=== PATIENT | male | born 1955 | race Caucasian/White ===

== ENCOUNTER 2017-09-20 12:03 | Day surgery (SDC) | payer OTHER, MEDICARE, SELFPAY ==
[2017-09-16 11:12] VITALS: BP 171/83; PULSE 65; RESP 16; TEMP 36.4; O2SAT 98; BMI 28.3
--- NOTE | 2017-09-16 11:24 | SDCEKG_ITS ---
Test Reason : Blood Pressure : / mmHG Vent. Rate : 062 BPM Atrial Rate : 062 BPM P-R Int : 188 ms QRS Dur : 088 ms QT Int : 372 ms P-R-T Axes : 051 005 139 degrees QTc Int : 377 ms Normal sinus rhythm ST & T wave abnormality, consider lateral ischemia Abnormal ECG Confirmed by EDEN TREJO, ROSA ([id number]), medical editor HAWA BEAN ([id number]) on 09/18/2017 9:09:11 AM Referred By: Mikie Quispe Confirmed By:ROSA HARMON MD
[2017-09-16 11:41] LABS: Hematocrit 43.9 % (40-54); Hemoglobin 15.2 g/dl (13.0-16.5); Mean Corp Hgb Conc 34.6 g/gl (32-36); Mean Corpuscular Hgb 29.7 pg (27.0-32.0); Mean Corpuscular Volume 85.7 fL (80-94); Mean Platelet Vol. 9.4 fl (6.2-12.0); Platelet Count 215 K/mm3 (150-450); RBC Distribution Width CV 13.8 % (11.6-14.6); RBC Distribution Width SD 42.6 fl (35.1-43.9); Red Blood Count 5.12 M/mm3 (4.6-6.2); White Blood Count 6.3 K/mm3 (4.4-11.0)
[2017-09-16 11:42] LABS: Scan Indicated on CBC? Y/N NO
[2017-09-16 11:53] LABS: Anion Gap 4 (5-15); BUN 10 mg/dL (7-18); BUN/Creat Ratio 10.8 RATIO (10-20); Calcium,Total 9.2 mg/dL (8.5-10.1); Chloride 105 mmol/L (98-107); Creatinine, Serum 0.93 mg/dL (0.70-1.30); EST Glomerular Filtration Rate 87 mL/min (>60); Est Glom Filt Rate - Afr Amer 105 mL/min (>60); Estimated Creatinine Clearance 82.86 ml/min; Glucose 97 mg/dL (74-106); Potassium 4.2 mmol/L (3.5-5.1); Sodium Level 139 mmol/L (136-145)
[2017-09-20] VITALS (9 sets, daily range): BP systolic 134–156; BP diastolic 55–87; PULSE 62–77; RESP 16–20; TEMP 35.9–37.2; O2SAT 94–99; BMI 28.3; BMI 62.3
--- NOTE | 2017-09-20 | IMM_PTH ---
PATIENT: NIKKI MARIN LOC: [facility] [place] U[place][id number] AGE/SX: 62/M ROOM: RE09/20/[address]: Dr. Mikie Quispe MD : 1955 BED: DIS: 09/21/2017 SPEC #: [id number] RECD: 09/24/17 10:45 STATUS: TODD REQ #: [id number] NGA: 09/20/17 00:[address]: Mikie Quispe DEPT: IMMUNOHISTOCHEMISTRY RECD BY: Randee Haji ENTERED: 09/24/17 10:51 SP TYPE: IMMUNO OTHR DR: Dr. Reggie Francis MD Tissues: B - Prostate, NOS Procedures: RCC (add) NAPSIN A (add) CD45 (add) CK20 (add) CK5-6 (add) CK7 (add) CK8 (add) EUGENE-2 (add) HEP PAR (add) P53 (add) PSA (add) TTF1 (add) MELAN-A (add) P40 (add) CD44 (add) Vimentin (initial) S-100 (add) PHYSICIAN & [place] [id number] SPECIMEN INFORMATION: Tissue Source: B ? Prostate tissue Clinical Info: BPH with obstruction Specimen Number: [id number] CPT code: 12951, 17332 x16 METHODOLOGY: Deparaffinized sections of prefer/formalin-fixed tissue or PAP/DQ stained slides are incubated with monoclonal/polyclonal antibodies/oligonucleotide probes. Localization is made via biotin free immunoperoxidase method. Appropriate controls are performed and reacted as expected. Results on target cell population are indicated in the following table: RESULTS: ANTIBODY / CLONE RESULT Block B1 Vimentin (V9) positive S-100 (4C4.9) negative Melan A (A103) negative CK7 (OV-TL12/30) positive, focal CK8 (01xrjqJ89) positive, focal CK20 (KS20.8) positive, focal CD45 (RP2/18) negative TTF-1 (8G7G3/1) negative Napsin A (Rabbit Polyclonal) negative HepPar (OCh1E5) negative RCC (PN-15) negative PSA (ER-PR8) negative CK5-6 (D5 & 1684) positive, focal P53 (DO-7) positive, high P40 (BC28) positive, focal EUGENE-2 (SP21) positive, focal anti-CD44 (SP37) positive These tests were developed and their performance characteristics determined by [facility]. They may not have been cleared or approved by the U.S. Food and Drug Administration. The FDA has determined that such clearance or approval is not necessary. 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 Comment - The tumor shows extensive sarcomatoid and focal squamous differntiation. SJ:tyrel 09/25/17
--- NOTE | 2017-09-20 13:05 | PCM.DC.URO ---
Discharge Diet: Light diet - advance as tolerated Discharge Activity: Return to Normal Activity Call your doctor if your incision/area has: Continuous Slow Oozing, Sudden Increased Bleeding, Increased Pain/ Swelling, Increased Redness, Foul Smelling Discharge, Swelling at the incision site Call your doctor if you observe: Fever of 101 or Higher Suture Line Care: Avoid Pulling/Pushing, Avoid Pinching/Bending Instructions: Transurethral Bladder Biopsy Allergies/Adverse Reactions: Allergies No Known Allergies Allergy (Verified 09/16/17 10:55) Medications to take at Discharge Albuterol IH (ProAir) [Proair Hfa (SP)Vent Pts] 2 puff INHALATION Q6H PRN PRN 09/16/17 Atorvastatin Calcium [Lipitor] 10 mg PO QHS 09/16/17 Metoprolol Tartrate [Lopressor (Beta Roopa)] 25 mg PO QHS 09/16/17 Ciprofloxacin [Cipro] 500 mg PO BID #6 tab 09/20/17 Hydrocodone/Acetaminophen [[place] 5-325 Tablet] 1 ea PO Q4H PRN PRN 5 Days #14 tab 09/20/17 The following prescriptions were given: Hydrocodone/Acetaminophen [[place] 5-325 Tablet] 1 ea PO Q4H PRN PRN 5 Days #14 tab PRN Reason: Pain Ciprofloxacin [Cipro] 500 mg PO BID #6 tab Primary Care Physician: Reggie Francis MD [Primary Care Provider] - Please Follow Up With: Mikie Quispe MD When: @ 10:30am
--- NOTE | 2017-09-20 14:01 | PCM.DC.URO ---
Discharge Diet: Light diet - advance as tolerated Discharge Activity: Return to Normal Activity, May not drive while taking narcotic pain medications. Call your doctor if your incision/area has: Continuous Slow Oozing, Sudden Increased Bleeding, Increased Pain/ Swelling, Increased Redness, Foul Smelling Discharge, Swelling at the incision site Call your doctor if you observe: Fever of 101 or Higher Suture Line Care: Avoid Pulling/Pushing, Avoid Pinching/Bending Instructions: Transurethral Resection of the Prostate (TURP): Home Recovery Allergies/Adverse Reactions: Allergies No Known Allergies Allergy (Verified 09/16/17 10:55) Medications to take at Discharge Albuterol IH (ProAir) [Proair Hfa (SP)Vent Pts] 2 puff INHALATION Q6H PRN PRN 09/16/17 Atorvastatin Calcium [Lipitor] 10 mg PO QHS 09/16/17 Metoprolol Tartrate [Lopressor (Beta Roopa)] 25 mg PO QHS 09/16/17 Ciprofloxacin [Cipro] 500 mg PO BID #6 tab 09/20/17 Docusate Sodium [Colace] 100 mg PO BID #20 cap 09/20/17 Hydrocodone/Acetaminophen [[place] 5-325 Tablet] 1 ea PO Q4H PRN PRN 5 Days #14 tab 09/20/17 The following prescriptions were given: Hydrocodone/Acetaminophen [[place] 5-325 Tablet] 1 ea PO Q4H PRN PRN 5 Days #14 tab PRN Reason: Pain Ciprofloxacin [Cipro] 500 mg PO BID #6 tab Docusate Sodium [Colace] 100 mg PO BID #20 cap Primary Care Physician: Reggie Francis MD [Primary Care Provider] - Please Follow Up With: Mikie Quispe MD When: October 03 at 10:30 am Proposed Discharge Date: 09/21/17
--- NOTE | 2017-09-20 14:05 | DCINST_ITS ---
Discharge Diet: Light diet - advance as tolerated Discharge Activity: Return to Normal Activity, May not drive while taking narcotic pain medications. Call your doctor if your incision/area has: Continuous Slow Oozing, Sudden Increased Bleeding, Increased Pain/ Swelling, Increased Redness, Foul Smelling Discharge, Swelling at the incision site Call your doctor if you observe: Fever of 101 or Higher Suture Line Care: Avoid Pulling/Pushing, Avoid Pinching/Bending Instructions: Transurethral Resection of the Prostate (TURP): Home Recovery Allergies/Adverse Reactions: Allergies No Known Allergies Allergy (Verified 09/16/17 10:55) Medications to take at Discharge Albuterol IH (ProAir) [Proair Hfa (SP)Vent Pts] 2 puff INHALATION Q6H PRN PRN Atorvastatin Calcium [Lipitor] 10 mg PO QHS 09/16/17 Metoprolol Tartrate [Lopressor (Beta Roopa)] 25 mg PO QHS 09/16/17 Ciprofloxacin [Cipro] 500 mg PO BID #6 tab 09/20/17 Docusate Sodium [Colace] 100 mg PO BID #20 cap 09/20/17 Hydrocodone/Acetaminophen [[place] 5-325 Tablet] 1 ea PO Q4H PRN PRN 5 Days #14 tab 09/20/17 The following prescriptions were given: Hydrocodone/Acetaminophen [[place] 5-325 Tablet] 1 ea PO Q4H PRN PRN 5 Days #14 tab PRN Reason: Pain Ciprofloxacin [Cipro] 500 mg PO BID #6 tab Docusate Sodium [Colace] 100 mg PO BID #20 cap Primary Care Physician: Reggie Francis MD [Primary Care Provider] - Please Follow Up With: Mikie Quispe MD When: October 03 at 10:30 am Proposed Discharge Date: 09/21/17
--- NOTE | 2017-09-20 14:25 | PROS_PTH ---
PATIENT: NIKKI MARIN [place] [facility] [place][id number] AGE/SX: 62/M ROOM: RE09/20/[address]: Dr. Mikie Quispe MD : 1955 BED: DIS: 09/21/2017 SPEC #: [id number] RECD: 09/23/17 09:21 STATUS: TODD ARTHUR #: [id number] NGA: 09/20/17 14:[address]: Mikie Quispe DEPT: SURGICAL PATHOLOGY RECD BY: Oscar Ferrell ENTERED: 09/23/17 12:21 SP TYPE: TURP OTHR DR: Dr. Reggie Francis MD Tissues: A - CALCULI B - Prostate, NOS Procedures: Surgery Specimen Level I Surgery Specimen Level IV HEADER OPERATION: Cysto, TUR, prostate, Olympus; laser bladder calculi PRE-OP DIAGNOSIS: Benign prostatic hypertrophy with obstruction; bladder stones TISSUE SUBMITTED: A ? Bladder calculi, B ? Prostate tissue MICROSCOPIC DIAGNOSIS A. Bladder calculi: Fragments of stone, clinically bladder calculi (gross only). B. Prostate tissue, TUR: Poorly differentiated carcinoma, consistent with urothelial primary involving prostatic stromal tissue. Fragments of stone (gross only). See comment. SJ:tyrel 09/25/17 COMMENT A. If chemical analysis is requested on this specimen, please notify the laboratory. B. Immunohistochemistry ([id number]) supports the above diagnosis. The tumor shows extensive sarcomatoid and focal squamous differentiation. The area of sarcomatoid differentiation comprises about 60% of the total tumor volume. About 90% of the specimen consists of the tumor. MICROSCOPIC DESCRIPTION Slides are reviewed. GROSS DESCRIPTION A - Received in fixative is one container labeled with the patient's name and designated bladder calculi. The specimen consists of multiple fragments of brownish irregular stones that in aggregate measure 1.5 x 1 x 1 cm. The specimen is gross diagnosis only. B - Received is one container labeled with the patient's name and designated prostate tissue. The specimen consists of multiple irregular fragments of pink-szymanski, rubbery, soft tissue that in aggregate weigh 9.5 gm and measure in aggregate 4 x 5 x 2 cm. Multiple stones are also noted. Also received and mixed with the prostate tissue are two fragments of multifaceted brownish stones each measuring 0.5 x 0.5 x 0.4 cm. A few minute stones are also noted. The entire specimen is submitted in seven cassettes. The stones are for gross only. / TATI:tyrel 09/23/17 TC:0 CPT: 18335, 97088
[2017-09-20] MEDS: Cefazolin 2 GM in 0.9% Normal Saline 100 ML IV (14:26)
--- NOTE | 2017-09-20 16:28 | PCM.OPRPT ---
Report of Operation Date of Procedure: 09/20/17 Pre-Operative Diagnosis: Bladder stones multiple large, BPH with obstruction Post-Operative Diagnosis: Cystoscopy and cystolitholapaxy with laser for large bladder stones, transurethral resection of a large prostate Surgery/Procedure Performed:: Cystoscopy and cystolitholapaxy with laser for large bladder stones, transurethral resection of a large prostate Description of Surgical Findings:: 62-year-old male who has significant amount of stones in his bladder also has BPH with obstruction presents to the hospital today for removal of the bladder stones and transurethral resection of the prostate to alleviate obstruction. 62-year-old male taken back to the operating room after smooth induction of anesthesia he was placed supine on the table penis and testicles were prepped and draped in usual sterile fashion I first went into the bladder with a 21 Malaysian rigid cystourethroscope once I got inside the bladder and I really had a very high bladder neck difficult to move around got bloody quickly fairly quickly, I then moved in the laser and then performed laser lithotripsy of multiple stones over in the back of the bladder as a laser the stones I got the stones out piece by piece, then after completing the removal of all the bladder stones then I switched over to the resectoscope. I dilated the urethra and put in a 26 Malaysian continuous resectoscope, identified the verumontanum and then started by resecting some tissue coming from the prostate into the bladder on the right anterior side and then resected at the 6:00 back to the room then resected the right lobe of the prostate and resect the left lobe the prostate then resected more intravesical tissue on the left side and my work my way back down to the apex of the prostate resected at very carefully then I switched over to the Ellik and I Ellik out all the chips and all the stones of the bladder. And then I switched over to the button vaporization to finish resecting the apical tissue smooth out the tissue for a nice resection pulled back behind the sphincter the sphincter is still intact pulled in front of the sphincter and smooth out more the tissue to have a nice open channel. Finally had a nice open channel from the verumontanum into the bladder neck left and right ureteral orifice were uninjured the urine was clear and put a three-way catheter 24 Malaysian into the bladder and continues bladder irrigation will irrigate this overnight catheter will come out tomorrow. Patient anesthetic was reversed and is taken back to the PACU in good condition. Type of Anesthesia:: General Drains: 22fr 3 way kulkarni Estimated Blood Loss (mL): 50cc - Admit VTE Documentation VTE Present on Admission: No VTE Mechan Device Prophylaxis: SCD's VTE Pharm Prophylaxis ordered?: No Reason prophylaxis not ordered:: Treatment Not Indicated
[2017-09-20] MEDS: 0.9% Normal Saline 1,000 ML 75 ML IV (18:03)
[2017-09-20] MEDS: Docusate Sodium 100 MG Capsule PO (22:11)
[2017-09-20] MEDS: Ciprofloxacin 500 MG Tablet PO (22:11)
[2017-09-21] MEDS: oxyCODONE 5 MG Tablet PO ×4 (02:23→15:20)
[2017-09-21 02:25] VITALS: BP 125/61; PULSE 65; RESP 18; TEMP 37.3; O2SAT 97
--- NOTE | 2017-09-21 06:07 | NURSING ---
CBI COMPLETE AT 0545HRS
[2017-09-21] MEDS: 0.9% Normal Saline 1,000 ML 75 ML IV (07:03)
[2017-09-21 07:31] VITALS: BP 121/60; PULSE 63; RESP 18; TEMP 36.6; O2SAT 97
[2017-09-21] MEDS: Docusate Sodium 100 MG Capsule PO (09:19)
[2017-09-21] MEDS: Ciprofloxacin 500 MG Tablet PO (09:19)
[2017-09-21] MEDS: Pantoprazole Sodium 40 MG Tablet PO (09:19)
[2017-09-21 13:30] VITALS: BP 134/76; PULSE 68; RESP 20; TEMP 37.3; O2SAT 97
--- NOTE | 2017-09-21 15:18 | NURSING ---
Voiding sm amts with weak stream per pt, bladder scanned post void for [address] Quispe notified, ok to discharge.
== END 2017-09-21 15:49 | disposition home or self-care (01) ==
LOC: SDC 12:05 → AC 12:05 → MS3 09-23 09:50
PROVIDERS: Anesthesiology; Family Provider Family Medicine; PCP Family Medicine; Visit Provider Urology
PROC: (CPT 52318; principal; 2017-09-20 14:15)
DX: N21.0 Calculus in bladder (principal); N40.1 Benign prostatic hyperplasia with lower urinary tract symptoms; N13.8 Other obstructive and reflux uropathy; R35.0 Frequency of micturition; R35.1 Nocturia; R33.8 Other retention of urine; R39.12 Poor urinary stream; I25.10 Atherosclerotic heart disease of native coronary artery without angina pectoris; J44.9 Chronic obstructive pulmonary disease, unspecified; I10 Essential (primary) hypertension; E78.01 Familial hypercholesterolemia; F17.200 Nicotine dependence, unspecified, uncomplicated; I25.2 Old myocardial infarction; Z79.899 Other long term (current) drug therapy
CPT/HCPCS: 52318; 52601; 80048; 85027; 88300; 88305; 88307; 88341; 88342; 93005; J7030; J7120; J2405

== ENCOUNTER 2024-01-01 17:13 | Emergency (ER) | payer OTHER, MEDICARE, SELFPAY ==
[2024-01-01 17:14] VITALS: BP 169/116; PULSE 81; RESP 20; TEMP 36.1; O2SAT 98
[2024-01-01 17:17] VITALS: BP 169/116; PULSE 81; RESP 20; TEMP 36.1; O2SAT 98; BMI 29.5
--- NOTE | 2024-01-01 17:34 | CT_ITS ---
STUDY: CT ABDOMEN AND PELVIS WITH CONTRAST REASON FOR EXAM: Male, 68 years old. hx of urostomy, RLQ pain RADIATION DOSAGE (If Supplied By Facility): CTDIvol = ( 15.47 ) mGy, DLP = ( 1140.60 ) mGycm TECHNIQUE: Transaxial images were obtained from the dome of the diaphragm to the symphysis pubis without oral contrast. IV 100mL Isovue-300 was administered. Sagittal and coronal images were reconstructed. Individualized dose optimization techniques were used for this CT. COMPARISON: March 19, 2017. FINDINGS: The visualized lung bases are unremarkable. The visualized portions of the heart are within normal limits. Up to 1.2 cm hypoattenuated left hepatic nodules in the liver, similar to previous study. Normal gallbladder and extrahepatic biliary system. Normal spleen. Normal pancreas. Normal bilateral adrenal glands. Normal right kidney. Normal left kidney. Normal visualized stomach. Duodenal diverticulum. Mild diverticulosis of the colon. The appendix is visualized and appears normal. Calcified abdominal aorta with mild intraluminal thrombus. Normal inferior vena cava. Normal retroperitoneum. Nonvisualization of the urinary bladder. Mild fatty density in the inguinal canals. 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 There is a slightly larger sclerotic lesion within the L1 vertebral body measuring 1.[address]/Abdomen/Pelvis W IV Cont ONLY IMPRESSION: Relatively stable hypoattenuated hepatic nodules. Duodenal diverticulum. Mild diverticulosis of the colon. Nonvisualization of the urinary bladder. 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 There is a slightly larger sclerotic lesion within the L1 vertebral body measuring 1.8 cm. Electronically Signed: Bay Gore DO at 19:12 EDT Reading Location ID and State: [facility] / [place] Tel [phone], Service support ,
--- NOTE | 2024-01-01 17:36 | EDS_ITS ---
HPI History of Present Illness Chief Complaint: General Illness Narrative Narrative: Patient is a 68-year-old male with a past medical history of urostomy secondary to resection of the prostate in his bladder for prostate cancer, opioid use recently went through detox and recently returned home who presented to [facility] with chief complaint of generalized not feeling well. He states that he was exposed to COVID at the facility and states that he has had fever chills diffuse bodyaches and abdominal pain not feeling well. [facility] Medical History Substance abuse History of prostate cancer Home Medications ?Medication ?Instructions ?Recorded ?Last Taken ?Type albuterol sulfate 90 mcg/actuation 2 puff inhalation Q6H PRN PRN Sob 09/16/17 Unknown History aerosol inhaler (ProAir HFA) &/Or Wheezing atorvastatin 10 mg tablet 10 mg PO QHS 09/16/17 09/18/17 17:00 History 1 metoprolol tartrate 25 mg tablet 25 mg PO QHS 09/16/17 09/18/17 17:00 History 1 ciprofloxacin HCl 500 mg tablet 500 mg PO BID #6 tabs 09/20/17 Unknown Rx docusate sodium 100 mg capsule 100 mg PO BID #20 caps 09/20/17 Unknown Rx hydrocodone-acetaminophen 5-325mg 1 ea PO Q4H PRN PRN Pain 5 days 09/20/17 Unknown Rx 5mg-325mg #14 tabs Allergy/AdvReac Type Severity Reaction Status Date / Time No Known Allergies Allergy Verified 01/01/24 17:14 Surgical History History of urostomy Social History Smoking Status: Current every day smoker tobacco type: cigarettes ROS ROS ED ROS Narrative Constitutional: Complains of chills, denies headaches, lightness, dizziness Eyes: Denies change in vision double vision blurry vision Cardiovascular: Denies chest pain or palpitations Respiratory: Denies coughing wheezing shortness of breath Abdomen: Complains of abdominal pain and nausea as noted above denies any vomiting or diarrhea : Denies any urinary symptoms states that he has a urostomy bag as noted above Neurological: Denies any numbness, weakness, tingling Musculoskeletal: Denies back pain Skin: Denies rashes or lesions EXAM Physical Exam Narrative Exam Narrative: General: Patient was lying in bed rest comfortably did not appear to be in acute distress Head: Atraumatic, normocephalic Eyes: PERRL bilaterally, EOMI bilaterally, no conjunctival injection noted Neck: Soft, supple, trach midline Cardiovascular: Regular rate and rhythm no murmurs gallops rubs noted Respiratory: Clear to auscultation bilaterally no rales rhonchi wheeze noted Abdomen: Soft, nondistended, urostomy bag in place had back for urine adequate output, diffuse tenderness palpation no rebound or guarding on exam Extremities: +5/5 strength noted in the bilateral upper and lower extremities, no pedal edema on exam Neurological: Patient following commands knew he is [facility] year is 2023 Skin: Warm, dry, intact Const Vital Signs: 01/01/24 17:14 01/01/24 17:17 01/01/24 17:17 Temperature 97 F L 97.0 F L Temperature Source Temporal Temporal Pulse Rate 81 81 Respiratory Rate 20 H 20 H Respiratory Effort Non-Labored Short of Breath Respiratory Pattern Normal Blood Pressure 169/116 H 169/116 H Blood Pressure Mean 133 133 Pulse Ox 98 98 Oxygen Delivery Method Room Air Room Air 01/01/24 18:17 01/01/24 19:14 Temperature 97.2 F L Temperature Source Temporal Pulse Rate 84 76 Respiratory Rate 18 18 Respiratory Effort Respiratory Pattern Blood Pressure 157/99 H 157/101 H Blood Pressure Mean 118 119 Pulse Ox 99 99 Oxygen Delivery Method Room Air Room Air [facility] Narrative Medical decision making narrative: Patient is a 68-year-old male who presented to the [facility] with a chief complaint of generalized not feeling well and concern for COVID-19 infection as well as abdominal pain nausea. Patient will have a workup performed here on the differential diagnose includes but not limited to COVID-19, viral gastroenteritis, UTI, small bowel obstruction. Once workup is obtained reviewed he will be reevaluated. Patient CBC reviewed and showed a white blood cell count of 6.9, hemoglobin is 12.8, platelet count was noted be 137. Patient's sodium normal 136, potassium normal at 4, creatinine normal at 0.94. Patient AST and ALT were 36 and 28 respectively. Patient's lipase noted to be 12. Patient's urinalysis showed 500 leukocyte esterase negative nitrites greater than 100 white blood cells seen with 1+ bacteria he does not have any urinary symptoms but he does have a urostomy bag in place therefore this will be sent for culture. Patient's chest x-ray was reviewed as well showed no acute evidence of cardiopulmonary processes. Patient CT abdomen pelvis with IV contrast showed a stable hypoattenuated hepatic nodule. Duodenal diverticulum. Diverticulosis of the colon. 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 Patient has not had any episodes of vomiting earlier today or here in the emergency department. There are slightly larger sclerotic lesion within the L1 vertebral body measuring 1.8 cm. Went to reevaluate the patient and nursing staff notified me that he eloped's before could have further discussion and reevaluate him. Lab Data Labs: Laboratory Results - last 24 hr 01/01/24 01/01/24 17:38 17:49 WBC 6.9 RBC 4.12 L Hgb 12.8 L Hct 37.3 L MCV 90.5 MCH 31.1 MCHC 34.3 RDW Std Deviation 48.0 H RDW Coeff of Maribell 14.6 Plt Count 137 L MPV 10.4 Immature Gran % (Auto) 0.400 Neut % (Auto) 79.7 H Lymph % (Auto) 12.2 L [place] % (Auto) 7.1 Eos % (Auto) 0.3 Baso % (Auto) 0.3 Absolute Neuts (auto) 5.5 Absolute Lymphs (auto) 0.84 Nucleated RBC % 0 Sodium 136 Potassium 4.0 Chloride 104 Carbon Dioxide 26.0 Anion Gap 6 BUN 13 Creatinine 0.94 Estim Creat Clear Calc 83.96 Est GFR (MDRD) Af Amer 103 Est GFR (MDRD) Non-Af 85 BUN/Creatinine Ratio 13.9 Glucose 105 Calcium 8.4 L Total Bilirubin 0.50 AST 36 ALT 28 Alkaline Phosphatase 125 H Troponin I High Sens 34 Total Protein 7.1 Albumin 3.3 Globulin 3.8 Albumin/Globulin Ratio 0.9 Lipase 12 L Urine Color Yellow Urine Clarity Clear Urine pH 6.5 Ur Specific [place] 1.010 Urine Protein 15 H Urine Glucose (UA) Normal Urine Ketones Negative Urine Occult Blood 25 H Urine Nitrite Negative Urine Bilirubin Negative Urine Urobilinogen Normal Ur Leukocyte Esterase 500 H Urine RBC 0 SEEN Urine WBC >100 SEEN Ur Squamous Epith Cells 0 SEEN Urine Bacteria 1+ Hyaline Casts 0-5 SEEN Urine Mucus 0 SEEN Radiography Diagnostic Testing: Clinical Impression(s) from Imaging Studies Abdomen/Pelvis CT 01/01/24 17:34 IMPRESSION: Relatively stable hypoattenuated hepatic nodules. Duodenal diverticulum. Mild diverticulosis of the colon. Nonvisualization of the urinary bladder. 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 There is a slightly larger sclerotic lesion within the L1 vertebral body measuring 1.8 cm. Electronically Signed: Bay Gore DO at 19:12 EDT , Chest X-Ray 01/01/24 18:25 IMPRESSION: No radiographic evidence of acute cardiopulmonary disease. Electronically Signed: Bay Gore DO at 20:05 EDT , Discharge Plan Triage Chief Complaint: General Illness Other Complaint: Wound ED Provider: Linwood Reed Dx/Rx/DC Orders Prescriptions: No Action atorvastatin 10 MG tablet 10 mg PO QHS albuterol sulfate [ProAir HFA] 1 PUFF inhaler 2 puff inhalation Q6H PRN PRN (Reason: Sob &/Or Wheezing) metoprolol tartrate 25 MG tablet 25 mg PO QHS hydrocodone-acetaminophen 1 EACH tablet 1 ea PO Q4H PRN PRN (Reason: Pain) 5 Days Qty: 14 0RF ciprofloxacin HCl 500 MG tablet 500 mg PO BID Qty: 6 0RF docusate sodium 100 MG capsule 100 mg PO BID Qty: 20 0RF Primary Care Provider: Rakan Guardado Referrals: Reggie Francis MD [Non-Staff] - Print Language: Bulgarian Disposition Disposition: Elopement Discharge Date/Time: 01/01/24 21:20
[2024-01-01] MEDS: 0.9% Normal Saline (1000mL) 1,000 ML 999 ML IV (17:47)
[2024-01-01] MEDS: Ondansetron 4 MG/2 ML Vial IV (17:47)
[2024-01-01 17:50] LABS: Absolute Lymphocyte Count 0.84 X10^3/uL (0.83-4.51); Absolute Neutrophil Count 5.5 X10^3/uL (2.0-7.7); Basophil# 0.02 X10^3/uL; Basophil% 0.3 % (0-1); Eosinophil# 0.02 X10^3/uL; Eosinophils% 0.3 % (0-5); Hematocrit 37.3 % (40-54); Hemoglobin 12.8 g/dL (13.0-16.5); Lymphocyte # 0.84 X10^3/ul (0.83-4.51); Lymphocyte % 12.2 % (19-41); Mean Corp Hgb Conc 34.3 g/dL (32-36); Mean Corpuscular Hgb 31.1 pg (27.0-32.0); Mean Corpuscular Volume 90.5 fL (80-94); Mean Platelet Vol. 10.4 fl (6.2-12.0); Monocyte# 0.49 X10^3/uL; Monocyte% 7.1 % (0-10); NRBC Flagged by Analyzer 0 % (0-5); Neutrophil # 5.47 X10^3/uL (2.7-7.7); Neutrophil % 79.7 % (47-70); Platelet Count 137 K/mm3 (150-450); RBC Distribution Width CV 14.6 % (11.6-14.6); Red Blood Count 4.12 M/mm3 (4.6-6.2); White Blood Count 6.9 K/mm3 (4.4-11.0)
[2024-01-01 17:55] LABS: Mucous, Urine 0 SEEN /hpf (<or=2+); Red Blood Cells-Urine 0 SEEN /hpf (0-5); Squamous Epithelial Cells - UA 0 SEEN /hpf (0-5)
[2024-01-01 18:13] LABS: ALB/GLOB Ratio 0.9 RATIO (0.9-2.4); AST(SGOT) 36 U/L (15-37); Alanine Aminotransfer ALT/SGPT 28 U/L (16-61); Albumin, Serum 3.3 g/dL (3.2-5.0); Alkaline Phosphatase 125 U/L (45-117); Anion Gap 6 (5-15); BUN 13 mg/dL (7-18); BUN/Creat Ratio 13.9 RATIO (10-20); Calcium,Total 8.4 mg/dL (8.5-10.1); Chloride 104 mmol/L (98-107); Creatinine, Serum 0.94 mg/dL (0.70-1.30); EST Glomerular Filtration Rate 85 mL/min (>60); Est Glom Filt Rate - Afr Amer 103 mL/min (>60); Estimated Creatinine Clearance 83.96 ml/min; Globulin 3.8 g/dL (2.2-4.2); Glucose 105 mg/dL (74-106); Lipase 12 U/L (13-75); Protein, Total 7.1 g/dL (6.4-8.2); Sodium Level 136 mmol/L (136-145); Troponin-I HS 34 pg/mL (3.0-78.0)
[2024-01-01 18:17] VITALS: BP 157/99; PULSE 84; RESP 18; TEMP 36.2; O2SAT 99
--- NOTE | 2024-01-01 18:25 | RAD_ITS ---
INDICATION: cough EXAMINATION/TECHNIQUE: X-RAY - XR Chest 2 Views COMPARISON: FINDINGS: LINES/DEVICES: The right-sided venous port with tip at the proximal SVC. LUNGS: No consolidation, edema or effusion. No pneumothorax. MEDIASTINUM AND CARDIOVASCULAR STRUCTURES: Cardiac silhouette not enlarged. Central airways and mediastinal contour are unremarkable. BONES AND SOFT TISSUES: Unremarkable. RAD/Chest PA and Lateral IMPRESSION: No radiographic evidence of acute cardiopulmonary disease. Electronically Signed: Bay Gore DO at 20:05 EDT ,
[2024-01-01 18:26] LABS: Color, Urine Yellow (Yellow); Glucose, Dipstick Normal (Normal); Ketone-Dipstick Negative (Negative); Leukocyte Esterase-Dipstick 500 /ul (Negative); Nitrite-Dipstick Negative (Negative); Occult Blood-Urine 25 /ul (Negative); Protein-Dipstick 15 mg/dl (Negative); Urine Bilirubin Dipstick Negative (Negative); Urine Clarity Clear (Clear); Urine Urobilinogen Normal (Normal); Urine pH 6.5 (5.0 - 8.0)
[2024-01-01 18:33] LABS: Bacteria 1+ /hpf (None Seen); Hyaline Cast 0-5 SEEN /lpf (0-5); White Blood Cells >100 SEEN /hpf (0-5)
[2024-01-01 19:14] VITALS: BP 157/101; PULSE 76; RESP 18; O2SAT 99
--- NOTE | 2024-01-01 21:17 | ED.RN ---
Patient rang out for nurse. He stated that he was tried of waiting and said I'll just go home to . Patient demanded that his IV be removed. IV removed and was intact. Patient got dressed and left with S.O. Dr. Reed notified of the elopement.
== END 2024-01-01 21:20 | disposition left against medical advice (07) ==
LOC: ED 19:07
PROVIDERS: Emergency Provider Emergency Medicine; PCP Family Medicine; Visit Provider Emergency Medicine
DX: R10.9 Unspecified abdominal pain (principal); F17.210 Nicotine dependence, cigarettes, uncomplicated; R50.9 Fever, unspecified
CPT/HCPCS: 71046; 74177; 80053; 81001; 83690; 84484; 85025; 87077; 87086; 87088; 87186; 87631; 93005; 96361; 96374; 99284; J7030; Q9967; A4216; J2405

== ENCOUNTER → 2024-11-30 | Outpatient (CLI) | payer OTHER, MEDICARE, SELFPAY ==
--- NOTE | 2024-11-30 15:26 | WOUNDNOTE ---
Pt was referred to this nurse by the [facility]. Pt states he has a history of bladder and prostate cancer. Pt has had the ileal conduit since 2018. Pt states he has received little assistance with appliance changes and states he has just had to figure it out on his own. Pt has been treated off and on for infections around the stoma. pt removed the appliance. 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 denies much discomfort from the hernia but states some burning around to stoma when he knows he has a leak. 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 these are often caused by alkaline urine. pt states a doctor had prescribed a type of soak to the skin with the appliance changes, but states it just didn't work. also discussed that he could even try using vinegar soaks for approx 5 min and rinsing with changes. Pt demonstrated how he changes his appliances and states the skin is improving so he wants to continue what he is doing. pt cleansed skin with warm water. pat dry. applied hydrocolloid strips to the peristomal lesions and then places his 2 piece flat [employer] appliance. pt uses barrier strips to the edges as well. Pt would like to continue with this way of changing the appliance and then will call this nurse if issues arise. Pt denies further needs at this time. appreciative of care and assistance today.
== END | disposition home or self-care (01) ==
LOC: ET 03-24 10:21
PROVIDERS: PCP Family Medicine; Referring Provider Nurse Practitioner Family; Visit Provider Nurse Practitioner Family
DX: K94.19 Other complications of enterostomy (principal)
CPT/HCPCS: 99211; G0463

== ENCOUNTER → 2025-03-18 | Outpatient (CLI) | payer OTHER, MEDICARE, SELFPAY ==
[2025-03-18 15:41] LABS: Hematocrit 36.3 % (40-54); Hemoglobin 13.0 g/dL (13.0-16.5); Immature Granulocytes Count 0.010 X10^3/uL (0.0-0.0); Mean Corp Hgb Conc 35.8 g/dL (32-36); Mean Corpuscular Volume 89.0 fL (80-94); Mean Platelet Vol. 10.5 fl (6.2-12.0); NRBC Flagged by Analyzer 0 % (0-5); Platelet Count 150 K/mm3 (150-450); RBC Distribution Width CV 14.2 % (11.6-14.6); RBC Distribution Width SD 45.2 fl (35.1-43.9); Red Blood Count 4.08 M/mm3 (4.6-6.2); White Blood Count 4.5 K/mm3 (4.4-11.0)
[2025-03-18 16:16] LABS: AST(SGOT) 27 U/L (<=37); Alanine Aminotransfer ALT/SGPT 14 U/L (<=46); Albumin, Serum 3.9 g/dL (3.4-4.8); Alkaline Phosphatase 111 U/L (40-129); Anion Gap 9 (5-15); BUN 14 mg/dL (4-19); BUN/Creat Ratio 16.7 RATIO (10-20); Calcium,Total 8.9 mg/dL (7.6-11.0); Carbon Dioxide 23.5 mmol/L (21.0-32.0); Chloride 104 mmol/L (98-108); Globulin 2.9 g/dL (2.2-4.2); Glucose 96 mg/dL (70-99); Potassium 4.7 mmol/L (3.3-5.1)
== END | disposition home or self-care (01) ==
LOC: LAB 14:37
PROVIDERS: PCP Family Medicine; Referring Provider Nurse Practitioner Family; Visit Provider Nurse Practitioner Family
DX: R22.43 Localized swelling, mass and lump, lower limb, bilateral (principal)
CPT/HCPCS: 36415; 80053; 85025